=== PATIENT | female | born 1990 | race African-American/Black ===

== ENCOUNTER 2019-01-23 13:45 | Emergency (ER) | payer MEDICAID ==
[2019-01-23] MEDS ORDERED: Ibuprofen 800 MG TAB ONE (14:05)
== END 2019-01-23 14:07 | disposition home or self-care (01) ==
LOC: NAV ERS 13:45
DX: K02.9 Dental caries, unspecified (principal); F41.9 Anxiety disorder, unspecified; F43.10 Post-traumatic stress disorder, unspecified; F25.9 Schizoaffective disorder, unspecified
CPT/HCPCS: 99283